=== PATIENT | male | born 1955 | race Caucasian/White ===

== ENCOUNTER 2024-03-17 16:07 | Emergency (ER) | payer MEDICARE, OTHER, SELFPAY ==
[2024-03-17 16:26] VITALS: BP 134/78
[2024-03-17 17:49] VITALS: BMI 26.5
[2024-03-17 17:52] VITALS: BP 139/89
[2024-03-17 18:00] VITALS: BP 150/87
--- NOTE | 2024-03-17 18:38 | ED.GENMED ---
History of Present Illness
General
Chief Complaint: Cough
Source: patient and spouse
Exam Limitations: none
Time Seen by Provider: 03/17/24 18:15
Nursing documentation reviewed up to this point in time: agreed with
History of Present Illness
History of Present Illness:
Patient presents to ED secondary to 4-day history of persistent, intermittent coughing. Denies chest pain or shortness of breath. Denies nausea, vomiting, or diarrhea. Denies fever or chills. Denies loss of appetite. Today, after particular
coughing spell, patient noted to have gagging episode, followed by brief loss of consciousness. was next to the patient at that time, and immediately woke up the patient. Denies recent travel or surgery. Denies sick contact. Of note,
patient reports falling due to mechanical fall in December, which resulted in clavicle and rib fracture. At that time, patient also was told about pleural effusion, which he was concerned about today.
Past History
Past History
ED Past Medical History: HTN, Hypercholesterolemia and NIDDM
ED Past Surgical History: Other (lump removal neck)
Review of Systems
Review of Systems
Allergies reviewed?: Yes
All Other Systems: ROS reviewed and negative except as documented in HPI and ROS
Constitutional: Reports no symptoms; Denies fever
EENT: Reports no symptoms
Respiratory: Reports cough; Denies trouble breathing
Cardiac: Reports syncope; Denies chest pain, diaphoresis or palpitations
ABD/GI: Reports no symptoms; Denies vomiting or diarrhea
: Reports no symptoms
Musculoskeletal: Reports no symptoms
Skin: Reports no symptoms
Neurological: Reports no symptoms
Phy Exam
Physical Exam
Physical Exam:
Physical Exam
General: no apparent distress, not acutely ill. afebrile.
Head: nc/at. eomi
Neck: supple. no meningeal signs. normal posterior pharynx
Heart: s1/s2 regular rate and rhythm, no murmur. equal radial pulses.
Lungs: no acute respiratory distress. clear bilaterally
Abdomen: normal bowel sounds. not tender. chest wall nontender to palpation.
Neuro: alert and oriented. no focal neurological deficits
Skin: no rash
Psychiatric: well kept. interactive and cooperative
Extremities: no edema. no calf tenderness.
Course
Orders/Labs/Results
Orders:
Orders
03/17/24 16:30
CXR2 [CR Chest - 2 Views ] Urgent
Comment:
Reason For Exam: cough
03/17/24 18:38
Azithromycin [Zithromax] 500 mg PO NOW STA
Benzonatate [Tessalon Perles] 100 mg PO NOW STA
Prednisone [Deltasone] 50 mg PO NOW STA
Vital Signs
Initial and Last Documented VS:
Initial Vital Signs
Temp Pulse Resp BP Pulse Ox
98.5 F 73 16 134/78 93
03/17/24 16:26 03/17/24 16:26 03/17/24 16:26 03/17/24 16:26 03/17/24 16:26
Last Documented Vital Signs
Temp Pulse Resp BP Pulse Ox
98.5 F 73 16 150/87 96
03/17/24 16:26 03/17/24 18:15 03/17/24 16:26 03/17/24 18:00 03/17/24 18:15
MDM/Problems Addressed
MDM/Problems Addressed:
Chest x-ray report reviewed and discussed with patient and his spouse. Clavicle and rib fractures, chronic, from mechanical fall in December. History, exam, and chest x-ray consistent with likely upper respiratory infection versus bronchitis versus
early pneumonia. Given patient's presenting symptoms, will start empiric treatment with antibiotics, prednisone, as well as cough medication. Advised PCP follow-up as an outpatient.
*Critical Care Note
Total Time (30-74mins, 75-104mins- exclusive of procedures): Not Applicable
ED Attending Note
-
Portions of this chart may have been created with voice recognition software.� Occasional wrong word or��sound alike� substitutions may have occurred due to the inherent limitations of voice recognition software.
Discharge Plan
Departure
Patient Disposition: Home (Routine Discharge)
Date of Disposition: 03/17/24
Time of Disposition: 18:58
Patient with high blood pressure during this ER visit?: Yes
Discharge Problem:
Acute bronchitis
Instructions: Acute Bronchitis, Adult (DC)
Prescriptions:
New
azithromycin [Zithromax] 250 mg tablet
250 mg PO DAILY 4 Days Qty: 4 0RF
prednisone 50 mg tablet
50 mg PO DAILY Qty: 2 0RF
benzonatate 100 mg capsule
100 mg PO TID PRN (Reason: Cough) Qty: 20 0RF
No Action
multivitamin [One Daily Multivitamin] 1 EACH tablet
1 ea PO DAILY
glipizide 10 MG tablet
15 mg PO DAILY
lovastatin [Mevacor] 10 MG tablet
10 mg PO DAILY
metformin 1,000 MG tablet
1,000 mg PO BID
naproxen sodium [Aleve] 220 MG tablet
220 mg PO Q8 PRN (Reason: pain)
ramipril 1.25 MG capsule
1.25 mg PO DAILY
escitalopram oxalate 5 MG tablet
5 mg PO DAILY
Referrals:
UNKNOWN - PT DOES,NOT KNOW [Family Provider] -
Activity Restrictions/Additional Instructions:
As discussed, please follow-up with your primary care physician for reevaluation. Your prescriptions have been sent electronically to [facility] pharmacy in [place].
Interventions
Interventions:
*Risk Screen - Suicide Last Done: 03/17/24 16:26
*General Assessment Last Done: 03/17/24 16:26
*Neglect/Abuse Screening Last Done: 03/17/24 16:26
ED- Fall Risk Assessment Last Done: 03/17/24 17:49
*ED COVID-19 Vaccine History Last Done: 03/17/24 17:49
*Nursing Disposition Last Done: 03/17/24 19:04
ED- Pulmonary Assessment Last Done: 03/17/24 17:49
Discharge Date and Time
Discharge Date/Time: 03/17/24 19:05
Print Language: [id number]
[2024-03-17] MEDS: DELTASONE 50 MG PO (18:53)
[2024-03-17] MEDS: TESSALON PERLES 100 MG PO (18:53)
[2024-03-17] MEDS: ZITHROMAX 500 MG PO (18:53)
== END 2024-03-17 19:05 | disposition home or self-care (01) ==
LOC: EMR 16:07
PROVIDERS: EMERGENCY PHYSICIAN Emergency Medicine
DX: R55 Syncope and collapse (principal); J20.9 Acute bronchitis, unspecified; S22.42XA Multiple fractures of ribs, left side, initial encounter for closed fracture; S42.002A Fracture of unspecified part of left clavicle, initial encounter for closed fracture; W19.XXXA Unspecified fall, initial encounter; E11.9 Type 2 diabetes mellitus without complications; E78.00 Pure hypercholesterolemia, unspecified; I10 Essential (primary) hypertension; F41.9 Anxiety disorder, unspecified; Z79.84 Long term (current) use of oral hypoglycemic drugs
CPT/HCPCS: 99283; 71046